=== PATIENT | female | born 1940 ===

== ENCOUNTER 2016-03-26 08:55 | Emergency (ER) | payer MEDICARE ==
[2016-03-26] MEDS ORDERED: IOPAMIDOL 370 (76%) 100 ML VIAL IV ONE (08:56)
[2016-03-26 09:24] LABS: ABSOLUTE NEUTROPHIL COUNT 6.4 K/mm3 (1.8-7.7); BASO # 0.1 K/mm3 (0.0-0.2); BASO % 0.5 % (0.2-1.0); EOS # 0.1 (0.0-0.5); EOS % 0.7 % (0.9-2.9); HEMATOCRIT 43.5 % (37.0-47.0); HEMOGLOBIN 13.8 gm/l (12.0-16.0); IMM NEUT% 0.4 % (0-1); LYMPH # 3.7 (1.0-4.8); MEAN CELL VOLUME 104.3 fl (81.0-99.0); MEAN CORPUSCULAR HEMOGLOBIN 33.1 pg (27.0-31.0); MEAN CORPUSCULAR HGB CONC 31.7 g/dl (33.0-37.0); MEAN PLATELET VOLUME 10.1 fl (7.4-10.4); MONO # 0.7 (0.0-0.8); NEUT % 58.4 % (43-75); PLATELET COUNT 344 K/mm3 (130-400); RED CELL DISTRIBUTION WIDTH 12.3 % (11.5-14.5)
[2016-03-26] MEDS ORDERED: MORPHINE SULFATE 4 MG/ML SYRINGE ONE ×2 (09:27→10:43)
[2016-03-26] MEDS ORDERED: ONDANSETRON 4 MG/2ML 2 ML VIAL ONE ×3 (09:27→12:24)
[2016-03-26] MEDS ORDERED: LACTATED RINGERS 1,000 ML ONE (09:27)
[2016-03-26 09:39] LABS: ALB/GLOB RATIO 1.1 (>1.0); ALBUMIN 4.1 gm/dL (3.5-5.7); CALCIUM 9.3 mg/dL (8.6-10.3)
[2016-03-26 11:06] LABS: URINE BILIRUBIN NEGATIVE (NEGATIVE); URINE BLOOD 1+ (NEGATIVE); URINE GLUCOSE (UA) NEGATIVE (NEGATIVE); URINE LEUKOCYTE ESTERASE 2+ (NEGATIVE); URINE NITRITE POSITIVE (NEGATIVE); URINE PROTEIN 2+ (NEGATIVE); URINE UROBILINOGEN NORMAL (0-1 mg/dl)
[2016-03-26 11:08] LABS: URINE APPEARANCE HAZY; URINE COLOR YELLOW
[2016-03-26 11:15] LABS: URINE BACTERIA 4+
[2016-03-26] MEDS ORDERED: CEFTRIAXONE 1 GRAM DUPLEX 50 ML IV ONE (11:17)
--- NOTE | 2016-03-26 11:31 | CT ---
Exams: CT head without contrast, CT angiogram head, CT angiogram neck COMPARISON: None INDICATION: Headache. Severe right frontal headache and vertigo. TECHNIQUE: CT examination of the head was obtained without contrast. CT angiogram of the head and neck was obtained following the administration of 80 mL Isovue-370 intravenous contrast using a CT angiogram protocol which was supplemented with multiplanar 3-D reformations constructed at an independent workstation. FINDINGS: There is no acute intracranial hemorrhage. There is no abnormal intra or extra-axial fluid collection. The large area of hypodensity within the right frontoparietal mid to high convexity. No mass effect or enhancement is seen in this location, therefore this is most compatible with an area of encephalomalacia. Additional area of hypodensity is seen within the left occipital lobe, presumably related to an additional focus of encephalomalacia. Cortical knox-white matter differentiation is otherwise maintained and there is no mass effect or midline shift. Mild periventricular white matter hypodensities are seen, compatible with chronic small vessel ischemic changes. There is mild global atrophy. Ventricles are normal in size. The visualized paranasal sinuses and mastoid air cells are well aerated. A few calcified soft tissue nodules are noted within the scalp bilaterally and are of uncertain etiology but doubtful clinical significance. Post cataract surgery, orbits otherwise unremarkable. 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 The proximal common carotid arteries are ectatic but widely patent. Mild calcified plaque formation is seen at the carotid artery bifurcations bilaterally, left greater than right. There is no evidence of significant stenosis within either carotid artery. The right vertebral artery is dominant. Focal calcified plaque formation is seen within the intracranial portion of the right vertebral artery but vertebral arteries are widely patent. Visualized mediastinum and lung apices are unremarkable. There is multilevel degenerative disc disease most prominent at C5-6. There is multilevel facet arthropathy which appears most pronounced on the left at C2-3 and on the right at C4-5. CT angiogram head: Dense calcified plaque formation is seen within the cavernous portion of the intracranial arteries bilaterally, however no focal stenosis is identified. The right A1 segment is hypoplastic, a normal anatomic variant. The bilateral middle cerebral and anterior cerebral arteries are widely patent without evidence of focal stenosis. The vertebral arteries join to form the basilar artery which is widely patent. The bilateral posterior cerebral arteries are widely patent. No abnormal enhancement is seen. No aneurysm is identified. There is focal nonvisualization of the proximal left internal jugular vein, just as it exits the skull base. There is reconstitution of flow at the level of the left carotid artery bifurcation. This is of uncertain etiology but doubtful clinical significance as it does appear chronic. 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 Vascular malformation was not visualized. IMPRESSION: 1. No acute findings identified to explain patient's headache. There is no acute intracranial hemorrhage or CT evidence for acute ischemia. 2. Two areas of hypodensity as above, one within the right frontoparietal region the other within the left occipital lobe, which are most compatible with encephalomalacia. Correlate with any history of remote ischemic events or hemorrhage/trauma. 3. No significant stenosis within either carotid artery. Vertebral arteries are patent. 4. CT angiogram of the head is within normal limits. Report was called to Dr. Sanders at 1110 hours 03/26/2016
[2016-03-26] MEDS ORDERED: PROPARACAINE HCL 0.5% 300 GTTS/BOT SOLN.DROP ONE (11:38)
== END 2016-03-26 13:10 | disposition home or self-care (01) ==
LOC: ED 08:55
DX: R51 Headache (principal); H57.8 Other specified disorders of eye and adnexa; N39.0 Urinary tract infection, site not specified; R11.2 Nausea with vomiting, unspecified; I10 Essential (primary) hypertension; E11.9 Type 2 diabetes mellitus without complications; Z79.4 Long term (current) use of insulin; Z79.84 Long term (current) use of oral hypoglycemic drugs
CPT/HCPCS: 85025; 87086; 80053; 87186; 85651; 81001; 70450; 70496; 70498; 96375 ×2; 96376 ×3; 99284 ×2; 96365; J2270 ×2; A9270; J2405 ×3; J7120; Q9967; J0696